=== PATIENT | female | born 1950 | race Caucasian/White ===

== ENCOUNTER 2016-08-06 05:35 | Day surgery (SDC) | payer MEDICARE, OTHER ==
[2016-07-29 16:44] LABS: HEMATOCRIT 43.7 % (36.0-48.0); HEMOGLOBIN 14.5 g/dL (12.0-16.0)
[2016-07-29 16:56] LABS: BUN (BLOOD UREA NITROGEN) 12 MG/DL (6-23); CALCIUM, SERUM 9.3 MG/DL (8.5-10.4); CHLORIDE, SERUM 104 MMOL/L (96-112); CO2 (CARBON DIOXIDE) 28 MMOL/L (24-34); CREATININE 0.79 MG/DL (0.55-1.02); GFR AFRICAN AMERICAN 89 ML/MIN (>=60); GFR NON AFRICAN AMERICAN 77 ML/MIN (>=60); GLUCOSE, SERUM 98 MG/DL (60-99); POTASSIUM, SERUM 4.6 MMOL/L (3.5-5.3); SODIUM, SERUM 143 MMOL/L (135-148)
--- NOTE | ~2016-08-06 | OP ---
Record Of Operation [facility] [address] [place]. [address] NAME: SUZE MENDES : 46 STATUS : [facility]#: [id number] AGE: 66 ADM/REG DATE : 08/06/16 MR#: [id number] REPORT SERV DATE: 08/07/16 DICTATED BY: JACQUELIN TIRADO II DATE: 08/07/16 REPORT STATUS : Draft TRANSCRIBED BY: MODL DATE: 08/07/16 DATE OF PROCEDURE: 08/06/2016 PREOPERATIVE DIAGNOSIS: Coccydynia. POSTOPERATIVE DIAGNOSIS: Coccydynia. PROCEDURE: Coccygectomy. SURGEON: Jacquelin Tirado M.D. FLUIDS: 1800 mL of LR. ESTIMATED BLOOD LOSS: 5 mL. DRAINS: None. COMPLICATIONS: None. ANTIBIOTIC: Preoperatively. PREOPERATIVE HISTORY: This is a very friendly 66-year-old female who reports significant pain when sitting. She has a very prominent and deformed coccyx. We discussed the pros and cons of continuing nonoperative care versus surgery. We discussed the rates of success versus failure as well as the risks of the surgery. We discussed the more common complications of course such as infection and wound dehiscence. We discussed the more rare complications of injury to the rectum. We also discussed the chance of anesthetic complications. DESCRIPTION OF PROCEDURE: After informed consent was obtained, the patient was brought to the operating room at her request, and general anesthesia achieved. She was placed in the prone position on the flat top table with a bump underneath her pelvis with the perineal area was isolated from the tip of the coccyx. The area was now prepped and draped in a sterile fashion. We did a midline incision to the right of the midline, so as to access thicker dermis. We then dissected down to the deformed and prominent coccyx. The subperiosteal exposure was completed. The surgery was done under loupe magnification head lamp. The tip of the coccyx was now removed with the high-speed elvin, the curettes, and the double action rongeur. I was very pleased with the coccygectomy. Hemostasis was achieved. No bowel or other viscera were encountered. I was pleased again with the surgery and hemostasis achieved followed by irrigation and standard closure. Meticulous dressing application was now performed followed by extubation and transferred to PACU in stable condition. JJ/MODL Record Of Operation [facility] [address] [place]. [address] NAME: SUZE MENDES : 46 STATUS : [facility]#: [id number] AGE: 66 ADM/REG DATE : 08/06/16 MR#: [id number] REPORT SERV DATE: 08/07/16 DICTATED BY: JACQUELIN TIRADO II DATE: 08/07/16 REPORT STATUS : Draft TRANSCRIBED BY: THALIA DATE: 08/07/16 Jacquelin Tirado II, M.D. / [id number] CC: Kwame Demarco II, D.O.
[~2016-08-06 05:35] MED LIST: ACET500CAP PO; ALEVE220 MG PO; CAT1 PO; HYZAAR 50/12.51 TAB PO; PRILO PO; SYN075 PO; SYN88 PO; TUMSROLL PO; [UNRECOGNIZED DRUG - OTHER] PO
== END 2016-08-06 11:33 | disposition home or self-care (01) ==
LOC: SDC 05:35
PROVIDERS: Orthopaedic Surgery
PROC: 0QTS0ZZ Resection of Coccyx, Open Approach (ICD-10-PCS; principal; 2016-08-06 06:45)
DX: M53.3 Sacrococcygeal disorders, not elsewhere classified (principal); K21.9 Gastro-esophageal reflux disease without esophagitis; I10 Essential (primary) hypertension; M19.90 Unspecified osteoarthritis, unspecified site; E07.9 Disorder of thyroid, unspecified; E03.9 Hypothyroidism, unspecified; D64.9 Anemia, unspecified; E66.9 Obesity, unspecified; M79.7 Fibromyalgia; Z88.5 Allergy status to narcotic agent; Z90.710 Acquired absence of both cervix and uterus; Z88.2 Allergy status to sulfonamides; Z87.442 Personal history of urinary calculi; Z88.8 Allergy status to other drugs, medicaments and biological substances
CPT/HCPCS: 36415; 80048; 85014; 85018; 88304; 88311; 93005; A9270-GY; J0690; J2250; J2405; J2710; J3010; J3370